=== PATIENT | male | born 1935 | race Caucasian/White ===

== ENCOUNTER 2022-05-04 15:37 | Inpatient (IN) | payer OTHER, MEDICARE ==
[~2022-05-04] VITALS: Ht 188 cm; Wt 73.9 kg
[2022-05-04 15:43] VITALS: BP_SYST 100
[2022-05-04 16:49] LABS: BASOPHILS # (AUTO) 0.1 K/uL (0.0-0.2); BASOPHILS % (AUTO) 0.3 % (0.0-2.0); EOSINOPHILS % (AUTO) 0.2 % (0.0-4.0); HEMATOCRIT 41.8 % (36-54); HEMOGLOBIN 14.1 g/dL (14.0-18.0); LYMPHOCYTES # (AUTO) 0.6 K/uL (1.0-5.5); LYMPHOCYTES % (AUTO) 3.3 % (20.5-51.5); MEAN CORPUSCULAR HEMOGLOBIN 36 pg (27-31); MEAN CORPUSCULAR HGB CONC 34 % (32-36); MEAN CORPUSCULAR VOLUME 106 fL (79.0-98.0); MONOCYTES # (AUTO) 0.5 K/uL (0.0-1.0); MONOCYTES % (AUTO) 2.5 % (1.7-9.3); NEUTROPHILS # (AUTO) 17.1 K/uL (1.8-7.7); NEUTROPHILS % (AUTO) 93.7 % (40.0-70.0); PLATELET COUNT (AUTO) 151 K/uL (130-430); RED BLOOD CELL COUNT(AUTO) 3.96 MIL/uL (4.2-6.2); RED CELL DISTRIBUTION WIDTH 15.5 % (9.0-15.0); WHITE BLOOD COUNT (AUTO) 18.3 K/uL (4.8-10.8)
[2022-05-04 17:05] LABS: ANION GAP 12 (5-15); CALCIUM 8.7 mg/dL (8.4-11.0); CHLORIDE 106 mmol/L (98-107); CREATININE 1.07 mg/dL (0.55-1.30); GLUCOSE 107 mg/dL (70-99); SODIUM SERUM 150 mmol/L (136-145); UREA NITROGEN, BLOOD 31 mg/dL (8-21)
[2022-05-04 17:12] LABS: ALANINE AMINOTRANSFERASE 15 U/L (12-78); ALBUMIN 2.4 g/dL (3.4-4.8); ASPARTATE AMINOTRANSFERASE 24 U/L (10-37)
--- NOTE | 2022-05-04 17:12 | NUR ---
COVID SWAB DONE AND SENT TO LAB
[2022-05-04 17:17] LABS: POTASSIUM 2.8 mmol/L (3.5-5.1)
[2022-05-04] MEDS ORDERED: ALBUTEROL SULFATE 0.083% 2.5 MG/3 ML VIAL.NEB INH ONE (17:45)
[2022-05-04] MEDS ORDERED: IPRATROPIUM BROM 0.5 MG/2.5 ML VIAL.NEB (ATROVENT) INH ONE (17:45)
[2022-05-04] MEDS ORDERED: POTASSIUM CHLORIDE 20 MEQ in D5/0.45 NS 1,000 ML IV SCH (18:45)
--- NOTE | 2022-05-04 18:57 | NUR ---
Patient resting quietly. VSS.
[2022-05-04] MEDS ORDERED: VANCOMYCIN HCL 1,000 MG in NS 250 ML IV ONE (19:00)
--- NOTE | 2022-05-04 19:15 | NUR ---
REPORT FROM TERRY SANTA
--- NOTE | 2022-05-04 19:19 | NUR ---
Report to Selene STEWART.
--- NOTE | 2022-05-04 19:57 | NUR ---
Admit bed requested Patient will be admitted to care of . Admitted to TELEMETRY unit. Diagnosis BILATERAL PNEUMONIA Inpatient (Yes or No) YES Observation (Yes or No) Orientation concerns or request close to nursing station (Yes or No) YES Covid NEG On vent or bipap NO Isolation requirements NO Needs a sitter From Home (Yes or if No enter name of facility) JUJU RASHI Requires Dialysis (Yes or No) NO Med Rec Completed (Yes of No) PENDING
[2022-05-04 20:35] VITALS: BP_SYST 126
[2022-05-04] MEDS ORDERED: ACETAMINOPHEN 650 MG SUPP.RECT RC PRN (21:30)
[2022-05-04] MEDS: methylPREDNISolone SOD SUCC/PF 62.5 MG/ML VIAL IVP SCH ×2 (21:30→23:10)
[2022-05-04] MEDS ORDERED: VANCOMYCIN HCL 1000 MG/VIAL IV ONE (21:32)
[2022-05-04] MEDS ORDERED: KCL 20 mEq in D5/0.45NS 1000mL 1,000 ML IV ONE (21:33)
[2022-05-04] MEDS ORDERED: MIDODRINE HCL 5 MG TABLET (PROAMATINE) PO SCH (21:36)
[2022-05-04] MEDS ORDERED: DONE5TAB33 PO (22:05)
[2022-05-04] MEDS ORDERED: LEVO75CA5 PO (22:05)
[2022-05-04] MEDS ORDERED: FURO-149 PO (22:05)
[2022-05-04] MEDS ORDERED: APIX2.5T PO (22:05)
[2022-05-04] MEDS ORDERED: TAFA61CA PO (22:05)
[2022-05-04] MEDS ORDERED: POTA-80 PO (22:05)
[2022-05-04] MEDS ORDERED: AMIO200T66 PO (22:05)
[2022-05-04] MEDS ORDERED: POLY119P15 PO (22:05)
[2022-05-04] MEDS ORDERED: MIDO5TAB4 PO (22:05)
--- NOTE | 2022-05-04 22:05 | NUR ---
Medication reconciliation completed with information provided by JUJU MARKHAM. Any prior medication reconciliation on file was reviewed and corrected.
[2022-05-04 22:11] LABS: INR 1.4 (0.80-1.20); PROTHROMBIN TIME 14.1 SECS (9.5-12.5)
--- NOTE | 2022-05-04 22:30 | NUR ---
Admission Note Received patient from ER with diagnosis of BILATERAL PNEUMONIA. Patient confused.
--- NOTE | 2022-05-04 22:30 | NUR ---
PT STABLE FOR ADMISSION TO ROOM #121C. TO ROOM VIA BERNARDA SOLER MONITOR WITH RN. REPORT TO TERRY DAVIS.VSS
[2022-05-04] MEDS ORDERED: PIPERACILLIN/TAZOBACTAM 3.375 GM/VIAL (ZOSYN) IV ONE (23:33)
[2022-05-05] MEDS: PIPERACILLIN/TAZO 3.375/DEX-IS 50 ML IV SCH ×2 (01:11→06:09)
[2022-05-05] MEDS: LEVOTHYROXINE SODIUM 0.075 MG TABLET PO SCH (06:09)
[2022-05-05] MEDS: methylPREDNISolone SOD SUCC/PF 62.5 MG/ML VIAL IVP SCH ×2 (06:09→12:35)
--- NOTE | 2022-05-05 07:40 | NUR ---
CLOSING NOTES Patient resting in bed - no s/s pain or distress noted. Respirations even and unlabored. IV site patent - no s/s redness, infection, or infiltration. Bed locked and in lowest position. Bed alarm on. Patient cleaned and linens changed three times throughout shift due to multiple bowel movements.
[2022-05-05 08:00] VITALS: BP_SYST 114
--- NOTE | 2022-05-05 08:00 | NUR ---
Patient is AOx2, patient states name and location. Patient is confused. Patient was on Nasal cannula on 4Lo2, SPO2 at 83- 88%. Increased O2 to 5L O2. SPo2 at 90-91%. Patient's breathing is even and nonlabored. Vital signs obtained as documented. Patient denies pain, no facial grimace noted. Cleaned and repositioned patient. Linen changed, patient incontinent and had bowel movement. HOB elevated. Safety precautions in place. Bed alarm on, at lowest position, and call light within reach.
--- NOTE | 2022-05-05 08:25 | NUR ---
CONSULT: CARDIO DR. CALVO IS HERE, WILL SEE THE PATIENT. DX: CHF
[2022-05-05] MEDS ORDERED: DONEPEZIL HCL 5 MG TABLET (ARICEPT) PO SCH (09:00)
[2022-05-05] MEDS ORDERED: NON-FORMULARY MEDICATION (Levothyroxine Sodium (Levothyroxine) 1 TAB) PO SCH (09:00)
--- NOTE | 2022-05-05 09:01 | NUR ---
ST EVALUATION COMPLETED. ST TX NOT INDICATED AT THIS TIME. RECOMMEND PO DIET OF PUREE/NECTAR THICK LIQUIDS. CONTINUE TO CUT/CRUSH MEDICATION NEEDED. 1:1 FEEDER AND FULL ASPIRATION PRECAUTIONS.
[2022-05-05 09:07] LABS: BASOPHILS % (AUTO) 0.1 % (0.0-2.0); HEMATOCRIT 42.8 % (36-54); HEMOGLOBIN 14.7 g/dL (14.0-18.0); LYMPHOCYTES # (AUTO) 0.4 K/uL (1.0-5.5); LYMPHOCYTES % (AUTO) 2.4 % (20.5-51.5); MEAN CORPUSCULAR HEMOGLOBIN 36 pg (27-31); MEAN CORPUSCULAR HGB CONC 34 % (32-36); MEAN CORPUSCULAR VOLUME 105 fL (79.0-98.0); MONOCYTES # (AUTO) 0.3 K/uL (0.0-1.0); MONOCYTES % (AUTO) 1.4 % (1.7-9.3); NEUTROPHILS # (AUTO) 17.8 K/uL (1.8-7.7); NEUTROPHILS % (AUTO) 96.1 % (40.0-70.0); PLATELET COUNT (AUTO) 155 K/uL (130-430); RED BLOOD CELL COUNT(AUTO) 4.09 MIL/uL (4.2-6.2); RED CELL DISTRIBUTION WIDTH 15.2 % (9.0-15.0); WHITE BLOOD COUNT (AUTO) 18.5 K/uL (4.8-10.8)
[2022-05-05] MEDS: FUROSEMIDE 40 MG TABLET PO SCH (09:25)
[2022-05-05] MEDS: APIXABAN 2.5 MG TABLET PO SCH ×2 (09:26→20:02)
[2022-05-05] MEDS: AMIODARONE HCL 200 MG TABLET PO SCH (09:27)
[2022-05-05] MEDS: POTASSIUM CHLORIDE 20 MEQ/PKT PACKET PO SCH (09:27)
[2022-05-05] MEDS: MIDODRINE HCL 5 MG TABLET (PROAMATINE) PO SCH ×3 (09:28→20:01)
[2022-05-05 09:33] LABS: ANION GAP 15 (5-15); CALCIUM 8.6 mg/dL (8.4-11.0); CHLORIDE 107 mmol/L (98-107); CREATININE 1.33 mg/dL (0.55-1.30); GLUCOSE 140 mg/dL (70-99); POTASSIUM 3.1 mmol/L (3.5-5.1); SODIUM SERUM 152 mmol/L (136-145); UREA NITROGEN, BLOOD 39 mg/dL (8-21)
--- NOTE | 2022-05-05 10:00 | NUR ---
critical Spoke to Dr. Marcano. aware of critical troponin level. NO orders received.
[2022-05-05] MEDS: POTASSIUM CHLORIDE 20 MEQ in D5/0.45 NS 1,000 ML IV SCH ×2 (10:41→23:57)
--- NOTE | 2022-05-05 11:30 | NUR ---
Notes Patient's SPo2 went down to 80's with nasal cannula and breathing treatment. Dr. Cordero came and saw patient earlier today, new orders received. Patient on Oxymizer @ 10 L O2. SPO2 is at 90-94%. Breathing is even and non labored at this time. ABG- pO2 low 64.5, Dr. Cordero made aware. Monitoring pulse ox continuously. Patient is confused and removes pulse ox constantly. HOB elevated and safety precautions in place. Call light within reach.
[2022-05-05 12:00] VITALS: BP_SYST 110
[2022-05-05] MEDS ORDERED: PIPERACILLIN/TAZOBACTAM 3.375 GM/ D5W 50 ML IV ONE ×2 (13:00)
--- NOTE | 2022-05-05 13:00 | NUR ---
Notes Dr. Tai came and saw patient. aware of patient's fluctuating SPo2 throughout the day. MD state to continue to monitor SPO2 with pulse. Patient SPo2 at 10 L O2 via Lo2 Addendum: 05/05/22 at 2219 by Dorothy Blancas LVN Notes Dr. Tai came and saw patient. aware of patient's fluctuating SPo2 throughout the day. MD state to continue to monitor SPO2 with pulse. Patient SPo2 at 93-94% 10 L O2 via Oxymizer. NO s/s of distress noted. HOB elevated. Safety precautions in place and call light within reach.
[2022-05-05] MEDS: LevALBUTEROL HCL 1.25 MG/0.5 ML *CONC.* VIAL.NEB (XOPENEX CONC.) INH PRN (13:06)
[2022-05-05] MEDS ORDERED: POTASSIUM CHLORIDE 40 MEQ in NS 250 ML IV ONE (13:45)
--- NOTE | 2022-05-05 14:30 | NUR ---
Notes Patient has been cleaned and repositioned. Linens changed. Patient is still on Oxymizer, increased to 12 L O2. SPO2 93- 96%. Continuos pulse ox in place. No s/s of distress noted. Breathing is even and nonlabored at this time. NO s/s of acute distress noted. Patient has a JOLYNN PICC line. HOB elevated. Safety Precautions in place and call light within reach.
[2022-05-05 16:00] VITALS: BP_SYST 114
--- NOTE | 2022-05-05 17:00 | NUR ---
Notes Patient's SPO2 dropped to low 80's with Oxymizer at 12 L O2. RT was called and was put on a nonrebreather mask, at 15 L O2. SPO2 range 96- 98%. NO acute s/s of distress noted at this time. NO SOB at this time. Breathing is even and nonlabored at this time. Dr. Tai made aware of patient fluctuating SPO2 when he came to see the patient earlier. Patient is DNR, POLST is in chart and signed by MD. Patient denies pain, no facial grimace noted. HOB elevated. Safety Precautions in place and call light within reach.
[2022-05-05] MEDS ORDERED: COMMUNICATION ORDER XX ONE (18:15)
[2022-05-05] MEDS: PIPERACILLIN/TAZOBACTAM 3.375 GM/ D5W 50 ML IV SCH ×4 (19:14→23:42)
--- NOTE | 2022-05-05 19:30 | NUR ---
Closing Notes Patient is on nonrebreather on 15 L O2. SPo2 at 94-96%. No acute s/s of respiratory distress at this time. Breathing is even and nonlabored. NO SOB noted. No facial grimace noted. Patient has been given a bed bath, changed all the linen and his gown, due to bowel movement. Patient has had multiple bowel movements through out the shift. HOB is elevated. Continuing of care has been endorsed to incoming noc nurse. Safety precautions in place, bed alarm on, at lowest position, and call light within reach.
[2022-05-05 20:00] VITALS: BP_SYST 112
[2022-05-05] MEDS: LINEZOLID 300 ML IV SCH (20:00)
[2022-05-05] MEDS: VYNDAMAX 61 MG PO SCH (20:01)
[2022-05-05] MEDS: DONEPEZIL HCL 5 MG TABLET (ARICEPT) PO SCH (20:02)
[2022-05-05 20:35] LABS: DIGOXIN 0.5 ng/mL (0.80-2.00)
[2022-05-05] MEDS ORDERED: ENOXAPARIN SODIUM 40 MG/0.4 ML SYRINGE SUBCUT SCH (21:00)
[2022-05-05] MEDS ORDERED: VANCOMYCIN HCL 1,500 MG in NS 250 ML IV SCH (21:00)
--- NOTE | 2022-05-05 21:22 | NUR ---
Patient in bed. Turned repositioned q2. No acute distress noted. Will continue to monitor.
[2022-05-06] VITALS: BP_SYST 95
[2022-05-06] MEDS: LEVOTHYROXINE SODIUM 0.075 MG TABLET PO SCH (04:55)
[2022-05-06] MEDS: PIPERACILLIN/TAZOBACTAM 3.375 GM/ D5W 50 ML IV SCH ×6 (04:55→18:07)
--- NOTE | 2022-05-06 05:16 | NUR ---
Patient continues to pull at his lines, and heart monitor. Will endorse to a.m. shift
[2022-05-06 06:46] LABS: BASOPHILS % (AUTO) 0.1 % (0.0-2.0); HEMATOCRIT 42.8 % (36-54); HEMOGLOBIN 14.5 g/dL (14.0-18.0); LYMPHOCYTES # (AUTO) 0.7 K/uL (1.0-5.5); LYMPHOCYTES % (AUTO) 3.3 % (20.5-51.5); MEAN CORPUSCULAR HEMOGLOBIN 36 pg (27-31); MEAN CORPUSCULAR HGB CONC 34 % (32-36); MEAN CORPUSCULAR VOLUME 105 fL (79.0-98.0); MONOCYTES # (AUTO) 0.6 K/uL (0.0-1.0); MONOCYTES % (AUTO) 2.8 % (1.7-9.3); NEUTROPHILS # (AUTO) 19.7 K/uL (1.8-7.7); NEUTROPHILS % (AUTO) 93.8 % (40.0-70.0); PLATELET COUNT (AUTO) 154 K/uL (130-430); RED BLOOD CELL COUNT(AUTO) 4.06 MIL/uL (4.2-6.2); RED CELL DISTRIBUTION WIDTH 16.1 % (9.0-15.0)
[2022-05-06 08:00] VITALS: BP_SYST 78
--- NOTE | 2022-05-06 08:00 | NUR ---
OPENING NOTE Patient in bed resting, no sign of distress or pain. Oxygen saturation 98% on a nonrebreather 15L. Patient is not currently pulling at lines or mask. PICC is intact and running prescribed fluids. Patient had an excellent appetite and ate 90% of his breakfast. All needs met at this time and safety checks made.
[2022-05-06] MEDS: MIDODRINE HCL 5 MG TABLET (PROAMATINE) PO SCH ×2 (08:30→15:25)
[2022-05-06] MEDS: POTASSIUM CHLORIDE 20 MEQ/PKT PACKET PO SCH (08:31)
[2022-05-06] MEDS: FUROSEMIDE 40 MG TABLET PO SCH (08:31)
[2022-05-06] MEDS: AMIODARONE HCL 200 MG TABLET PO SCH (08:32)
[2022-05-06] MEDS: APIXABAN 2.5 MG TABLET PO SCH (08:33)
[2022-05-06 08:44] LABS: ALANINE AMINOTRANSFERASE 11 U/L (12-78); ANION GAP 2 (5-15); ASPARTATE AMINOTRANSFERASE 23 U/L (10-37); CALCIUM 8.5 mg/dL (8.4-11.0); CHLORIDE 115 mmol/L (98-107); CREATININE 1.61 mg/dL (0.55-1.30); GLUCOSE 147 mg/dL (70-99); POTASSIUM 3.7 mmol/L (3.5-5.1); SODIUM SERUM 148 mmol/L (136-145); THYROID STIMULATING HORMONE 6.06 uIu/mL (0.36-3.74); TOTAL BILIRUBIN 1.2 mg/dL (0.0-1.0); UREA NITROGEN, BLOOD 56 mg/dL (8-21)
[2022-05-06] MEDS ORDERED: NS 500 ML IV ONE (10:00)
[2022-05-06] MEDS: LINEZOLID 300 ML IV SCH ×2 (10:06→20:43)
--- NOTE | 2022-05-06 10:26 | NUR ---
PATIENT PLACED ON BIPAP AND RESTRAINTS Patient pulling off non rebreather mask and oxygen dropping to the 70's. Patient's blood pressure decreased. Spoke with Dr Cordero and received new orders. Patient placed on bipap and is now on soft bilateral restraints. Patient continues to pull at the restraints and attempts to pull at his heart monitor leads and bipap tubing. Patient is also receiving an NS bolus. All needs met at this time and safety checks made.
[2022-05-06 11:11] VITALS: BP_SYST 104
[2022-05-06] MEDS: POTASSIUM CHLORIDE 20 MEQ in D5/0.45 NS 1,000 ML IV SCH (11:24)
--- NOTE | 2022-05-06 15:51 | NUR ---
Dietitian Recommendations * Continue Pureed, NTL diet (ONS Ensure Enlive TID comes standard w/ current diet; ONS yields 1050 kcal/day, 60 gm protein/day) * Yogurt TID w/ meals per family request LP, MS, RD Please refer to Nutrition Assessment for details. Addendum: 05/06/22 at [address] Amended: Links added.
[2022-05-06 16:00] VITALS: BP_SYST 81
[2022-05-06] MEDS ORDERED: *TPN PER PHARMACY XX PRN (18:00)
[2022-05-06] MEDS ORDERED: ALBUMIN HUMAN 25% 100 ML IV ONE (18:30)
--- NOTE | 2022-05-06 19:13 | NUR ---
CLOSING NOTE Patient resting in bed with eyes closed, no sign of pain. Patient continues to pull at his lines even with the bilateral wrist restraints. Bipap in place, oxygenation 93% on 100% oxygen. PICC line is patent and running prescribed fluids. Patient has been turned q2h throughout shift. Patient continues to have watery stools, c-diff test pending. Endorsed to oceanographer assistant nurse that per Dr Cordero, if the patient remains hypotensive after receiving albumin, patient may need to be transferred to ICU. All needs met at this time and safety checks made. Endorsed to oceanographer assistant nurse.
[2022-05-06 20:00] VITALS: BP_SYST 96
[2022-05-06] MEDS: METHYLPREDNISOLONE SOD SUCC 40 MG/ML VIAL IVP SCH (20:43)
[2022-05-06] MEDS: VYNDAMAX 61 MG PO SCH (21:00)
--- NOTE | 2022-05-06 23:21 | NUR ---
Patient in bed. No acute distress noted. Turned repositioned q 2. Pericare given. Bipap intact. Will continue to monitor.
[2022-05-07] MEDS: APIXABAN 2.5 MG TABLET PO SCH ×3 (00:35→22:36)
[2022-05-07] MEDS: MIDODRINE HCL 5 MG TABLET (PROAMATINE) PO SCH ×4 (00:35→21:12)
[2022-05-07] MEDS: DONEPEZIL HCL 5 MG TABLET (ARICEPT) PO SCH ×2 (00:35→21:17)
[2022-05-07] MEDS: PIPERACILLIN/TAZOBACTAM 3.375 GM/ D5W 50 ML IV SCH ×8 (00:36→18:09)
[2022-05-07 00:59] VITALS: BP_SYST 125
[2022-05-07] MEDS: POTASSIUM CHLORIDE 20 MEQ in D5/0.45 NS 1,000 ML IV SCH ×3 (02:24→21:20)
[2022-05-07 08:08] VITALS: BP_SYST 74
[2022-05-07] MEDS ORDERED: NS 250 ML IV ONE ×3 (08:15→10:15)
[2022-05-07 08:35] LABS: ALBUMIN 2.1 g/dL (3.4-4.8); CHLORIDE 112 mmol/L (98-107); POTASSIUM 4.1 mmol/L (3.5-5.1); UREA NITROGEN, BLOOD 62 mg/dL (8-21)
[2022-05-07] MEDS: METHYLPREDNISOLONE SOD SUCC 40 MG/ML VIAL IVP SCH ×2 (08:41→21:04)
[2022-05-07 09:45] LABS: ALANINE AMINOTRANSFERASE 11 U/L (12-78); ANION GAP 8 (5-15); ASPARTATE AMINOTRANSFERASE 23 U/L (10-37); CALCIUM 8.3 mg/dL (8.4-11.0); CREATININE 1.92 mg/dL (0.55-1.30); GLUCOSE 130 mg/dL (70-99); SODIUM SERUM 149 mmol/L (136-145); TOTAL BILIRUBIN 0.9 mg/dL (0.0-1.0)
[2022-05-07] MEDS: LEVOTHYROXINE SODIUM 0.075 MG TABLET PO SCH (09:53)
[2022-05-07] MEDS: POTASSIUM CHLORIDE 20 MEQ/PKT PACKET PO SCH (09:53)
[2022-05-07] MEDS: AMIODARONE HCL 200 MG TABLET PO SCH (09:53)
[2022-05-07 09:58] LABS: TRIGLYCERIDES 75 mg/dL (30-150)
--- NOTE | 2022-05-07 10:10 | NUR ---
RT NOTE: 1010 Pt taken off BiPAP and placed on 8LPM simple mask. Tolerating well. SpO2 between 94-98%. Respiratory rate even and unlabored.
--- NOTE | 2022-05-07 10:16 | NUR ---
TAKEN OFF BIPAP, PLACED ON SIMPLE MASK Patient placed on simple mask 8L, oxygen saturation 97%. Patient is tolerating well, breathing is nonlabored and even.
[2022-05-07] MEDS: LINEZOLID 300 ML IV SCH ×2 (10:21→21:18)
[2022-05-07 10:30] LABS: BASOPHILS % (AUTO) 0.1 % (0.0-2.0); HEMATOCRIT 41.9 % (36-54); HEMOGLOBIN 14.2 g/dL (14.0-18.0); LYMPHOCYTES # (AUTO) 0.7 K/uL (1.0-5.5); LYMPHOCYTES % (AUTO) 4.3 % (20.5-51.5); MEAN CORPUSCULAR HEMOGLOBIN 36 pg (27-31); MEAN CORPUSCULAR HGB CONC 34 % (32-36); MEAN CORPUSCULAR VOLUME 107 fL (79.0-98.0); MONOCYTES # (AUTO) 0.5 K/uL (0.0-1.0); MONOCYTES % (AUTO) 2.9 % (1.7-9.3); NEUTROPHILS # (AUTO) 14.6 K/uL (1.8-7.7); NEUTROPHILS % (AUTO) 92.7 % (40.0-70.0); PLATELET COUNT (AUTO) 112 K/uL (130-430); RED BLOOD CELL COUNT(AUTO) 3.92 MIL/uL (4.2-6.2); RED CELL DISTRIBUTION WIDTH 15.9 % (9.0-15.0); WHITE BLOOD COUNT (AUTO) 15.8 K/uL (4.8-10.8)
[2022-05-07 10:46] LABS: PHOSPHORUS 4.2 mg/dL (2.7-4.5)
[2022-05-07 12:05] VITALS: BP_SYST 121
--- NOTE | 2022-05-07 14:55 | NUR ---
Wound Evaluation: Wound Consult ordered for Low Nicholas Score. Patient evaluated for a low Nicholas score of 15. Patient was awake, alert, confused, and received in a Olmitz Bed with an Atmos-Air 9000 mattress. Patient needs to be turned in bed. Skin assessment: 1. Buttocks: Blanchable redness with dark discolored skin from IAD, present on admission. Recommend: Cleanse involved areas with mild soap and water. Pat dry. Apply moisture barrier cream to involved areas. Perform site care 4 times daily and as needed for soiling. Recommend: Reposition patient side to side only every 2 hours with pillow support. Elevate, off-load and float bilateral heels with 1 pillow lengthwise under each extremity at all times. Offload pressure areas with pillows for pressure re-distribution. Perform skin care and monitor skin integrity Q shift. Use moisture barrier cream on moisture susceptible areas QID and PRN for soiling. Place patient on a low air-loss mattress.
[2022-05-07 16:43] VITALS: BP_SYST 122
--- NOTE | 2022-05-07 18:57 | NUR ---
CLOSING NOTE Patient in bed resting, agitated and pulling at his restraints. Patient is confused and has consistently tried to remove his oxygen mask when his restraints are removed. Comfort measures provided throughout the shift. Patient is on a simple mask, 8L, with oxygen 93%. Breathing is regular and nonlabored. Patient continues to have loose stools. PICC line is clean, dry, intact and running prescribed fluids. All needs met at this time and safety checks made. Will endorse to bridal sales consultant nurse.
[2022-05-07] MEDS ORDERED: [UNRECOGNIZED DRUG - OTHER] IV SCH ×6 (21:00)
[2022-05-07] MEDS ORDERED: POTASSIUM CHLORIDE IV SCH ×6 (21:00)
[2022-05-07] MEDS ORDERED: TPN CENTRAL IV SCH ×6 (21:00)
[2022-05-07] MEDS ORDERED: MVI IV SCH ×6 (21:00)
[2022-05-07] MEDS ORDERED: TRACE ELEMENTS IV SCH ×6 (21:00)
[2022-05-07] MEDS: VYNDAMAX 61 MG PO SCH (21:09)
[2022-05-07] MEDS: FAT EMULSIONS 250 ML IV SCH (21:29)
[2022-05-08] MEDS: PIPERACILLIN/TAZOBACTAM 3.375 GM/ D5W 50 ML IV SCH ×8 (00:14→18:15)
[2022-05-08 01:07] VITALS: BP_SYST 114
[2022-05-08] MEDS: LEVOTHYROXINE SODIUM 0.075 MG TABLET PO SCH (06:35)
[2022-05-08 06:39] LABS: EOSINOPHILS % (AUTO) 0.1 % (0.0-4.0); HEMOGLOBIN 14.8 g/dL (14.0-18.0); LYMPHOCYTES # (AUTO) 0.7 K/uL (1.0-5.5); LYMPHOCYTES % (AUTO) 4.3 % (20.5-51.5); MEAN CORPUSCULAR HEMOGLOBIN 36 pg (27-31); MEAN CORPUSCULAR HGB CONC 34 % (32-36); MEAN CORPUSCULAR VOLUME 106 fL (79.0-98.0); MONOCYTES # (AUTO) 0.4 K/uL (0.0-1.0); MONOCYTES % (AUTO) 2.3 % (1.7-9.3); NEUTROPHILS # (AUTO) 16.1 K/uL (1.8-7.7); PLATELET COUNT (AUTO) 91 K/uL (130-430); RED BLOOD CELL COUNT(AUTO) 4.17 MIL/uL (4.2-6.2); RED CELL DISTRIBUTION WIDTH 16.4 % (9.0-15.0); WHITE BLOOD COUNT (AUTO) 17.3 K/uL (4.8-10.8)
--- NOTE | 2022-05-08 07:13 | NUR ---
received report from endorsing hourly shift RN for continuation of care, patient vital signs blood pressure 96/62, heart rate 66, oxygen saturation 92 , and temperature 95.6, will continue to monitor.
[2022-05-08 08:44] LABS: ALANINE AMINOTRANSFERASE 15 U/L (12-78); ANION GAP 10 (5-15); ASPARTATE AMINOTRANSFERASE 24 U/L (10-37); CALCIUM 8.3 mg/dL (8.4-11.0); CHLORIDE 111 mmol/L (98-107); CREATININE 1.69 mg/dL (0.55-1.30); GLUCOSE 146 mg/dL (70-99); PHOSPHORUS 2.7 mg/dL (2.7-4.5); POTASSIUM 4.3 mmol/L (3.5-5.1); SODIUM SERUM 148 mmol/L (136-145); TOTAL BILIRUBIN 0.9 mg/dL (0.0-1.0); UREA NITROGEN, BLOOD 62 mg/dL (8-21)
[2022-05-08] MEDS: METHYLPREDNISOLONE SOD SUCC 40 MG/ML VIAL IVP SCH ×2 (08:47→21:48)
[2022-05-08] MEDS: MIDODRINE HCL 5 MG TABLET (PROAMATINE) PO SCH ×3 (08:50→21:49)
[2022-05-08] MEDS: AMIODARONE HCL 200 MG TABLET PO SCH (08:51)
[2022-05-08] MEDS: APIXABAN 2.5 MG TABLET PO SCH ×2 (08:53→21:48)
[2022-05-08] MEDS: POTASSIUM CHLORIDE 20 MEQ/PKT PACKET PO SCH (08:54)
[2022-05-08] MEDS: LevALBUTEROL HCL 1.25 MG/0.5 ML *CONC.* VIAL.NEB (XOPENEX CONC.) INH PRN (09:05)
[2022-05-08] MEDS: LINEZOLID 300 ML IV SCH (09:17)
[2022-05-08 12:04] VITALS: BP_SYST 106
[2022-05-08 15:21] LABS: NEUTROPHILS % (AUTO) 93.3 % (40.0-70.0)
[2022-05-08 16:06] VITALS: BP_SYST 112
--- NOTE | 2022-05-08 16:58 | NUR ---
Nutrition F/U Admitting Diagnosis Bilat pneumonia Reviewed Pertinent Medical/Surgical Hx Medical Record Patient PharmD Medical History Comment: PMH: CHF, dementia, HTN, and COPD per physician notes Pt also found w/ hypoxemia, hypothyroidism, hypernatremia, moderate malnutrition, and CKD per physician notes Subjective Information: TPN Notification received 05/06/[address] visited pt at bedside. No family present. TPN seen infusing as per physician/pharmD order. Per EMR review, pt was placed NPO d/t requiring more O2 via BiPAP and he became poorly responsive; pt is confused; tested positive for C. diff; on simple mask 8 L O2; DNR/DNI noted. Pt is not yet meeting optimal nutritional needs. RD spoke w/ pharmD in [facility] and relayed new RD TPN rec; pharmD acknowledged. Current Diet Order/Nutrition Support: NPO x1 day & TPN D30%, AA10% at 45 ml/hr, IL20% at 5 ml/hr via central line TPN Provides: 974 kcal/day, 54 gm protein/day, 1200 ml total volume/day, and GIR: 1.5 mg CHO/kg/min TPN Meets: 44% of lower end of estimated caloric needs and 73% of lower end of estimated protein needs Education Provided Not Indicated Pertinent Medications: solu-medrol, piperacillin/tazobactam, eliquis, KCl packet, synthroid Pertinent Labs: WBC 17.3 H, Na 148 H, BUN 62 H, CRE 1.69 H, BG 146 H, TG 75 WNL, Lactic acid 3 H, BNP 175 H (05/06) Height (Feet) 6 feet Height (Inches) 2.00 inches Weight (Pounds) 163 pounds -- stable since 05/06 Weight (Calculated Kilograms) 73.152154 kilograms Patient Weight 73.936 kg Body Mass Index 20.93 kg/m2 Usual Weight 190 lbs %UBW 86 %IBW 86 [place]/Adjusted Body Weight 190#/86.4 kg Recent Weight Change Yes - Suspected 27# wt loss/14% wt change within 6 mo Weight Status Appropriate Gastrointestinal Symptoms Diarrhea Last BM 05/08 Difficulty With: Chewing Swallowing Food Allergies No Usual Diet At Home Regular/thin/DEBBIE per nursing nutritional screening Skin Integrity Comment: Nicholas scale: 14, L arm w/ abrasion and R arm w/ ecchymosis; BLE w/ non-pitting edema per nursing notes Current % PO N/A Estimated Energy Expenditure (kcals/day) 5496-6720 (30-35 kcal/kg CBW d/t acute illness) Estimated Protein Required (g/day) 74-89 (0.8-1.2 gm/kg CBW d/t acute illness) Estimated Fluid Required (l/day) Per physician d/t CKD Problem/Etiology/Signs/Symptoms Complicated GI function R/T suspected med-induced diarrhea AEB daughter report of loose BM since starting Abx. *Ongoing, pt +C. diff Inadequate TPN support R/T increased nutritional demands AEB estimated nutritional requirements for acute illness and current TPN support meets <75% of estimated nutritional needs. *New Expected Outcomes/Goals - Monitor provision of TPN support w/ goal of pt meeting >80% of estimated nutritional needs, labs trending WNL, normal GI function, and skin integrity/wt maintenance Dietitian Recommendations * TPN D50%, AA10% at 75 ml/hr (goal rate), IL20% at 5 ml/hr daily via central line Provides: 2076 kcal/day, 90 gm protein/day, 1920 ml free water/day, and GIR: 4.2 mg CHO/kg/min Meets: 94% of lower end of estimated caloric needs and 101% of upper end of estimated protein needs * Consider BG monitoring and possible implementation of insulin d/t TPN infusion Follow Up High Risk: F/U in 2-3 days
[2022-05-08] MEDS: VANCOMYCIN HCL ORAL SOLUTION 125 MG/5 ML, 150 ML PO SCH ×2 (17:00→21:00)
--- NOTE | 2022-05-08 17:08 | NUR ---
Dietitian Recommendations * TPN D50%, AA10% at 75 ml/hr (goal rate), IL20% at 5 ml/hr daily via central line Provides: 2076 kcal/day, 90 gm protein/day, 1920 ml free water/day, and GIR: 4.2 mg CHO/kg/min Meets: 94% of lower end of estimated caloric needs and 101% of upper end of estimated protein needs * Consider BG monitoring and possible implementation of insulin d/t TPN infusion LP, MS, RD RD relayed TPN rec to pharmD. Please refer to Nutrition F/U for details.
--- NOTE | 2022-05-08 18:36 | NUR ---
checked patient blood sugar 134, no insulin coverage per sliding scale.
[2022-05-08 19:30] VITALS: BP_SYST 165
--- NOTE | 2022-05-08 19:30 | NUR ---
PM ASSESSMENT; -Pt is alerted x1, resting in bed. NO s/s any chest pain,sob,or any acute distress noted. GEORGINA PICC patent with 2 ports drsg cdi. TPN @ 45ml/hr, lipid 20% @ 5ml/hr, and D5 1/2 NS @30ml/hr. Olivier soft wrists restraint applied,good circulation, no s/s any injury noted. Keep HOB > 30 degree entire time. Maintain C-diff contact isolation. Pt is on simple mask with 8 L with y7yzf=81-03%. Unable to discuss poc d/t cognitive limitation and no family is at bedside this time. All safety measures in place. Cont to monitor pt.
[2022-05-08] MEDS ORDERED: TPN CENTRAL IV SCH ×7 (21:00)
[2022-05-08] MEDS ORDERED: POTASSIUM CHLORIDE IV SCH ×7 (21:00)
[2022-05-08] MEDS ORDERED: [UNRECOGNIZED DRUG - OTHER] IV SCH ×7 (21:00)
[2022-05-08] MEDS ORDERED: MVI IV SCH ×7 (21:00)
[2022-05-08] MEDS ORDERED: K PHOS IV SCH ×7 (21:00)
[2022-05-08] MEDS: FAT EMULSIONS 250 ML IV SCH (21:46)
--- NOTE | 2022-05-08 21:48 | NUR ---
ROUNDS; Incont of bowel movt -Pt is still awakes, resting in bed. NO s/s any chest pain,sob,or any acute distress noted. GEORGINA PICC patent with 2 ports drsg cdi. TPN @ 45ml/hr, lipid 20% @ 5ml/hr, and D5 1/2 NS @30ml/hr. Oliiver soft wrists restraint applied,good circulation, no s/s any injury noted. Keep HOB > 30 degree entire time. Maintain C-diff contact isolation. Pt is on simple mask with 8 L with r3vlx=79-17%. Pt is incontinent of large loose dark green stool,provided perineal care and now pt is cleaned and dry. All safety measures in place.cont to monitor pt.
[2022-05-08] MEDS: VYNDAMAX 61 MG PO SCH (21:49)
[2022-05-08] MEDS: DONEPEZIL HCL 5 MG TABLET (ARICEPT) PO SCH (21:51)
--- NOTE | 2022-05-09 | NUR ---
ROUNDS; -Pt is resting in bed comfortably. NO s/s any chest pain,sob,or any acute distress noted. GEORGINA PICC patent with 2 ports drsg cdi. TPN @ 45ml/hr, lipid 20% @ 5ml/hr, and D5 1/2 NS @30ml/hr. Olivier soft wrists restraint applied,good circulation, no s/s any injury noted. Keep HOB > 30 degree entire time. Maintain C-diff contact isolation. Pt is on simple mask with 8 L with k2ghd=15-39%. All safety measures in place.cont to monitor pt.
[2022-05-09] MEDS: PIPERACILLIN/TAZOBACTAM 3.375 GM/ D5W 50 ML IV SCH ×8 (01:32→18:11)
[2022-05-09] MEDS: POTASSIUM CHLORIDE 20 MEQ in D5/0.45 NS 1,000 ML IV SCH ×2 (01:33→21:39)
--- NOTE | 2022-05-09 02:00 | NUR ---
ROUNDS; -Pt is asleep in bed comfortably. NO s/s any chest pain,sob,or any acute distress noted. GEORGINA PICC patent with 2 ports drsg cdi. TPN @ 45ml/hr, lipid 20% @ 5ml/hr, and D5 1/2 NS @30ml/hr. Olivier soft wrists restraint applied,good circulation, no s/s any injury noted. Keep HOB > 30 degree entire time. Maintain C-diff contact isolation. Pt is on simple mask with 8 L with b1ans=39-12%. All safety measures in place.cont to monitor pt.
[2022-05-09 02:52] VITALS: BP_SYST 96
--- NOTE | 2022-05-09 04:00 | NUR ---
ROUNDS; -Pt is asleep in bed comfortably. Pt's condition stable. NO s/s any chest pain,sob,or any acute distress noted. GEORGINA PICC patent with 2 ports drsg cdi. TPN @ 45ml/hr, lipid 20% @ 5ml/hr, and D5 1/2 NS @30ml/hr. Olivier soft wrists restraint applied,good circulation, no s/s any injury noted. Keep HOB > 30 degree entire time. Maintain C-diff contact isolation. Pt is on simple mask with 8 L with k7spw=60-94%. All safety measures in place.cont to monitor pt.
[2022-05-09] MEDS: LEVOTHYROXINE SODIUM 0.075 MG TABLET PO SCH (06:18)
--- NOTE | 2022-05-09 06:27 | NUR ---
CLOSING NOTES; -Pt is resting in bed. NO s/s any chest pain,sob,or any acute distress noted. GEORGINA PICC patent with 2 ports drsg cdi. TPN @ 45ml/hr, lipid 20% @ 5ml/hr, and D5 1/2 NS @30ml/hr. Olivier soft wrists restraint applied,good circulation, no s/s any injury noted. Keep HOB > 30 degree entire time. Maintain C-diff contact isolation. Pt is on simple mask with 8 L with b6pdp=40-19%. All safety measures in place. Will endorse to next nurse to cont care.
--- NOTE | 2022-05-09 07:12 | NUR ---
RECEIVED REPORT FROM ENDORSING CLEAN ROOM OPERATOR RN FOR CONTINUITY OF CARE,CHECKED VITAL SIGNS BLOOD PRESSURE 122/63, HEART RATE 64, OXYGEN SATURATION 97, AND TEMPERATURE 96.8.
[2022-05-09 08:00] VITALS: BP_SYST 122
[2022-05-09] MEDS: VANCOMYCIN HCL ORAL SOLUTION 125 MG/5 ML, 150 ML PO SCH ×4 (09:00→21:00)
[2022-05-09] MEDS: MIDODRINE HCL 5 MG TABLET (PROAMATINE) PO SCH ×3 (09:20→21:00)
[2022-05-09] MEDS: AMIODARONE HCL 200 MG TABLET PO SCH (09:20)
[2022-05-09] MEDS: POTASSIUM CHLORIDE 20 MEQ/PKT PACKET PO SCH (09:22)
[2022-05-09] MEDS: APIXABAN 2.5 MG TABLET PO SCH ×2 (09:22→21:00)
[2022-05-09] MEDS: METHYLPREDNISOLONE SOD SUCC 40 MG/ML VIAL IVP SCH ×2 (09:35→21:57)
[2022-05-09 09:45] LABS: ALANINE AMINOTRANSFERASE 22 U/L (12-78); ANION GAP 7 (5-15); ASPARTATE AMINOTRANSFERASE 34 U/L (10-37); CALCIUM 8.5 mg/dL (8.4-11.0); CHLORIDE 110 mmol/L (98-107); CREATININE 2.05 mg/dL (0.55-1.30); GLUCOSE 156 mg/dL (70-99); PHOSPHORUS 2.6 mg/dL (2.7-4.5); POTASSIUM 4.7 mmol/L (3.5-5.1); SODIUM SERUM 144 mmol/L (136-145); TOTAL BILIRUBIN 1.2 mg/dL (0.0-1.0); UREA NITROGEN, BLOOD 73 mg/dL (8-21)
--- NOTE | 2022-05-09 11:00 | NUR ---
Dr. Roblero is at the bedside, talking to the patient daughter Deepika about the condition of the patient.
[2022-05-09 12:00] VITALS: BP_SYST 111
--- NOTE | 2022-05-09 12:30 | NUR ---
CM: discussed dcp and options with dtrs: Octavia. They requested snf per their family dr 's advice. They want the family md to continue care at snf. See STRATEGIC SOURCING SPECIALIST's notes for the snf of choice and referrals.
--- NOTE | 2022-05-09 12:40 | NUR ---
PATIENT SERVICES ASSISTANT ACSW Susan responded to a STAT request for Manager Electrical Support. ACSW Susan met with patient's daughters Octavia. ACSW completed introductions and provided business card. They shared educational director was recommending palliative care and also according to patient's daughters, they were concerned as they had not received an update from primary treating physician in 5 days. As requested, ACSW provided a brief explanation of both palliative and hospice services. Due to patient's daughters requesting information specifically related to discharge plan, ACSW provided a brief explanation of the roles of licensed master social worker and case liner and recommended they also speak with case liner. ACSW provided update to Orthodontic Laboratory Technician Victoria on patient's daughters concerns. ACSW will continue to be available as needed
[2022-05-09] MEDS: LevALBUTEROL HCL 1.25 MG/0.5 ML *CONC.* VIAL.NEB (XOPENEX CONC.) INH PRN ×2 (13:07→15:41)
[2022-05-09 16:00] VITALS: BP_SYST 103
[2022-05-09 19:26] VITALS: BP_SYST 99
[2022-05-09] MEDS ORDERED: [UNRECOGNIZED DRUG - OTHER] IV SCH ×6 (21:00)
[2022-05-09] MEDS ORDERED: MVI IV SCH ×6 (21:00)
[2022-05-09] MEDS: VYNDAMAX 61 MG PO SCH (21:00)
[2022-05-09] MEDS ORDERED: TPN CENTRAL IV SCH ×6 (21:00)
[2022-05-09] MEDS: DONEPEZIL HCL 5 MG TABLET (ARICEPT) PO SCH (21:00)
[2022-05-09] MEDS ORDERED: K PHOS IV SCH ×6 (21:00)
[2022-05-09] MEDS ORDERED: TRACE ELEMENTS IV SCH ×6 (21:00)
[2022-05-09] MEDS: FAT EMULSIONS 250 ML IV SCH (21:43)
--- NOTE | 2022-05-09 21:50 | NUR ---
RT NOTES GOT CALLED TO PT'S ROOM DUE TO DESATURATION @1830, PT WAS ON SIMPLE MASK 9L SPO2 100%. PT WAS BREATHING AROUND IN THE 30S AND BREATHS WERE VERY SHALLOW. PLACED ON BIPAP 10/5 BACK UP RATE OF 16, 45% FI02. PT GETTING VOLUMES, BS WERE HEARD OVER BOTH LUNG AYON. PT CLAMMED DOWN AFTER AWHILE AND IS NOW BREATHING IN MID 20S. SPO2 99%, HR 53.
[2022-05-09 23:14] VITALS: BP_SYST 95
[2022-05-10 04:17] VITALS: BP_SYST 89
--- NOTE | 2022-05-10 04:42 | NUR ---
CLOSING NOTE-PT AWAKE AND RESTLESS. ON BIPAP FIO2 45%. BILATERAL SOFT WRIST RESTRAIN NOT TO REMOVE BIPAP. LAST V/S- 89/51 MMHG, O2 SAT 98% , HR 71 SR WITH OCC A-FIB. HAVING LOOSE GREENISH DIARRHEA X 2. C-DIFF POSITIVE. DIET- NPO ALSO PT UNABLE TO TAKE MEDICATION BY MOUTH DUE TO ALTERED MENTATION. APPLIED PROTECTIVE CREAM ON PERINEAL AND BUTTOCK- REDNESS. TPN @ 44 ML/HR, LIPID 5 ML/HR AND D51/2NS+ 20 MEQ KCL AT 30 ML/HR VIA RT UPPER ARM DOUBLE LUMEN PICC LINE. DRESSING DRY AND INTACT. DISCHARGE PLAN TO SNF WHEN BED IS AVAILABLE. BS EVERY 6 HR- WNL.
[2022-05-10] MEDS: PIPERACILLIN/TAZOBACTAM 3.375 GM/ D5W 50 ML IV SCH ×8 (05:14→17:22)
[2022-05-10] MEDS: LEVOTHYROXINE SODIUM 0.075 MG TABLET PO SCH (06:58)
--- NOTE | 2022-05-10 07:28 | NUR ---
GIVEN REPORT TO RADHA STEWART.
--- NOTE | 2022-05-10 07:30 | NUR ---
OPENING NOTES: PATIENT RESTING IN BED. PATIENT IS DROWSY AND SHALLOW BREATHING NOTED. PT IS ON BIPAP 45% FIO2. DISCONTINUED RESTRAINT. IVF AND TPN INFUSING WELL. BED LOCKED , ALARM ON AND IN LOWEST POSITION. FALL AND SAFETY PRECAUTION REINFORCED. CALL LIGHT WITHIN REACH.
--- NOTE | 2022-05-10 07:35 | NUR ---
Restraint discontinued: Patient is drowsy. Restraints discontinued.
[2022-05-10 08:09] VITALS: BP_SYST 103
[2022-05-10] MEDS: METHYLPREDNISOLONE SOD SUCC 40 MG/ML VIAL IVP SCH ×2 (08:23→20:26)
[2022-05-10 08:35] LABS: ALANINE AMINOTRANSFERASE 35 U/L (12-78); ALBUMIN 1.8 g/dL (3.4-4.8); ANION GAP 9 (5-15); ASPARTATE AMINOTRANSFERASE 62 U/L (10-37); CALCIUM 8.1 mg/dL (8.4-11.0); CHLORIDE 110 mmol/L (98-107); CREATININE 2.06 mg/dL (0.55-1.30); GLUCOSE 162 mg/dL (70-99); PHOSPHORUS 3.8 mg/dL (2.7-4.5); POTASSIUM 4.6 mmol/L (3.5-5.1); SODIUM SERUM 144 mmol/L (136-145); UREA NITROGEN, BLOOD 86 mg/dL (8-21)
[2022-05-10 08:40] LABS: HEMATOCRIT 50.6 % (36-54); HEMOGLOBIN 16.7 g/dL (14.0-18.0); MEAN CORPUSCULAR HEMOGLOBIN 35 pg (27-31); MEAN CORPUSCULAR HGB CONC 33 % (32-36); MEAN CORPUSCULAR VOLUME 107 fL (79.0-98.0); RED BLOOD CELL COUNT(AUTO) 4.75 MIL/uL (4.2-6.2); RED CELL DISTRIBUTION WIDTH 16.1 % (9.0-15.0); WHITE BLOOD COUNT (AUTO) 20.6 K/uL (4.8-10.8)
[2022-05-10] MEDS: AMIODARONE HCL 200 MG TABLET PO SCH (08:44)
[2022-05-10] MEDS: VANCOMYCIN HCL ORAL SOLUTION 125 MG/5 ML, 150 ML PO SCH ×4 (08:45→21:00)
[2022-05-10] MEDS: POTASSIUM CHLORIDE 20 MEQ/PKT PACKET PO SCH (08:45)
[2022-05-10] MEDS: APIXABAN 2.5 MG TABLET PO SCH ×2 (08:45→21:00)
[2022-05-10] MEDS: MIDODRINE HCL 5 MG TABLET (PROAMATINE) PO SCH ×3 (08:46→21:00)
[2022-05-10 09:17] LABS: PLATELET COUNT (AUTO) 42 K/uL (130-430)
--- NOTE | 2022-05-10 09:27 | NUR ---
CRITICAL LAB: CONRAD from Laboratory called with critical lab value PLATELET 42. Medical record number and patient name verified. Read back of values done. DR. Marcano notified of value during his rounds. NO new order given at this time.
[2022-05-10 09:34] LABS: TRIGLYCERIDES 137 mg/dL (30-150)
--- NOTE | 2022-05-10 10:55 | NUR ---
CASE PICKER/DISCHARGE PLANNING ACSW Susan faxed patient's packet to the following SNFs: - [facility] P: F: - [facility] P: F: - [facility] P: [phone] F: - [facility] P: F:
[2022-05-10 12:00] VITALS: BP_SYST 115
--- NOTE | 2022-05-10 12:00 | NUR ---
DR. MOORE SPOKE TO THE FAMILY(DTR, REN AND ): DR. MOORE SPOKE TO THE FAMILY REGARDING PATIENT'S CONDITION. PER FAMILY (DAUGHTER/ REN) , THEY DECIDED TO STAY ON BIPAP. THEY WILL TALK TO THE OTHER FAMILY REGARDING COMFORT MEASURES (E.G. MORPHINE). ONCE THEY WILL BE DECIDED, THEY WILL CALL BACK OR TALK TO DR. MOORE..
--- NOTE | 2022-05-10 12:11 | NUR ---
INCONTINENT CARE DONE: INCONTINENT CARE DONE. SACRAL AREA INTACT. SHALLOW BREATHING. BIPAP IN PLACED.
--- NOTE | 2022-05-10 14:00 | NUR ---
CM: BECKIE sent out the referral as follows: -[facility] P: F: - [facility] P: F: : per [facility], patient is accepted. - [facility] P: [phone] F: - [facility] P: F:
[2022-05-10 14:26] LABS: BAND % (MANUAL) 17 % (0-6); BASOPHILS % (MANUAL) 0 % (0-2); EOSINOPHILS % (MANUAL) 0 % (0-7); LYMPHOCYTES % (MANUAL) 3 % (20-46); METAMYELOCYTES % 2 % (0-0); MONOCYTES % (MANUAL) 11 % (0-11)
[2022-05-10 16:00] VITALS: BP_SYST 100
--- NOTE | 2022-05-10 19:27 | NUR ---
CLOSING NOTES: PATIENT RESTING IN BED. SHALLOW BREATHING. BIPAP IN PLACED. IV INFUSING WELL. FALL AND SAFETY MEASURES PROVIDED. CALL LIGHT WITHIN REACH. NEEDS MET THROUGHOUT SHIFT.
[2022-05-10 19:42] VITALS: BP_SYST 97
[2022-05-10 20:00] VITALS: BP_SYST 97
[2022-05-10] MEDS: VYNDAMAX 61 MG PO SCH (21:00)
[2022-05-10] MEDS ORDERED: TPN CENTRAL IV SCH ×8 (21:00)
[2022-05-10] MEDS ORDERED: K PHOS IV SCH ×8 (21:00)
[2022-05-10] MEDS ORDERED: MVI IV SCH ×8 (21:00)
[2022-05-10] MEDS: DONEPEZIL HCL 5 MG TABLET (ARICEPT) PO SCH (21:00)
[2022-05-10] MEDS ORDERED: TRACE ELEMENTS IV SCH ×8 (21:00)
[2022-05-10] MEDS ORDERED: [UNRECOGNIZED DRUG - OTHER] IV SCH ×8 (21:00)
[2022-05-10] MEDS: FAT EMULSIONS 250 ML IV SCH (21:44)
[2022-05-10] MEDS: POTASSIUM CHLORIDE 20 MEQ in D5/0.45 NS 1,000 ML IV SCH (21:50)
[2022-05-11] VITALS (7 sets, daily range): BP systolic 61–107
[2022-05-11] MEDS: PIPERACILLIN/TAZOBACTAM 3.375 GM/ D5W 50 ML IV SCH ×4 (00:04→05:45)
--- NOTE | 2022-05-11 06:33 | NUR ---
Closing Note- Pt open eye. respiration sallow and labored. on BIPAP FIO2 45%, sat remains >91%. last bp85/52 mmhg, HR 58, Tele- controlled A-FIB. BS 169 mg/dl at 06:00 am. incontinent of urine and bm- had 3 times loose greenish stool. excoriation around groin and buttocks. cleaned with water and soap then applied skin protective cream. TPN @ 50 ml/hr, lipid 5 ml/hr and d51/2ns+ 20 meq kcl at 30 ml/hr. Modified code- BIPAP.
[2022-05-11] MEDS: LEVOTHYROXINE SODIUM 0.075 MG TABLET PO SCH (06:40)
[2022-05-11 07:20] LABS: ALANINE AMINOTRANSFERASE 48 U/L (12-78); ALBUMIN 1.8 g/dL (3.4-4.8); ANION GAP 8 (5-15); ASPARTATE AMINOTRANSFERASE 64 U/L (10-37); CALCIUM 8.2 mg/dL (8.4-11.0); CHLORIDE 109 mmol/L (98-107); CREATININE 2.49 mg/dL (0.55-1.30); GLUCOSE 122 mg/dL (70-99); PHOSPHORUS 4.3 mg/dL (2.7-4.5); POTASSIUM 4.8 mmol/L (3.5-5.1); SODIUM SERUM 143 mmol/L (136-145); TOTAL BILIRUBIN 1.3 mg/dL (0.0-1.0); UREA NITROGEN, BLOOD 99 mg/dL (8-21)
--- NOTE | 2022-05-11 07:30 | NUR ---
OPENING NOTES: PATIENT RESTING IN BED, LETHARGIC AND NONVERBAL. CURRENTLY ON BIPAP 45% FIO2 02 SAT 94%. NO ADDITIONAL DISTRESS NOTED. CALL LIGHT WITHIN REACH. WILL CONT TO MONITOR.
[2022-05-11] MEDS: METHYLPREDNISOLONE SOD SUCC 40 MG/ML VIAL IVP SCH (08:54)
[2022-05-11] MEDS: VANCOMYCIN HCL ORAL SOLUTION 125 MG/5 ML, 150 ML PO SCH (09:00)
[2022-05-11] MEDS: MIDODRINE HCL 5 MG TABLET (PROAMATINE) PO SCH (09:00)
[2022-05-11] MEDS: AMIODARONE HCL 200 MG TABLET PO SCH (09:00)
[2022-05-11] MEDS: APIXABAN 2.5 MG TABLET PO SCH (09:00)
[2022-05-11] MEDS: POTASSIUM CHLORIDE 20 MEQ/PKT PACKET PO SCH (09:00)
[2022-05-11] MEDS ORDERED: NS 250 ML IV ONE (09:15)
--- NOTE | 2022-05-11 09:30 | NUR ---
FAMILY AT BEDSIDE: PATIENT'S AND DAUGHTER AT THE BEDSIDE AND WANTED TO SPEAK WITH DR MOORE REGARDING COMFORT CARE. WILL PAGE DR MOORE.
--- NOTE | 2022-05-11 10:18 | NUR ---
ATTENDING MD DR MOORE WAS PAGED, RE: TO INFORM FAMILY IS HERE TO DISCUSS COMFORT MEASURE.
[2022-05-11] MEDS ORDERED: CEFEPIME 2 GM in D5W 100 ML IV SCH (11:00)
--- NOTE | 2022-05-11 12:00 | NUR ---
1130 AM: SPOKE WITH DR MICHAEL AND WILL BE HERE AT NOON TO SPEAK WITH FAMILY REGARDING COMFORT CARE. 1145 AM: DR MOORE AT THE BEDSIDE AND SPOKE WITH FAMILY REGARDING COMFORT CARE. PER PATIENT , SHE WANTS THE PATIENT TO COMFORTABLE. NO MORE BIPAP AND IVF EXCEPTS MORPHINE DRIP AND 100% NRB MASK. 1155 AM: NEW ORDER FROM DR MOORE TO DC ALL MEDICATIONS, IVF, AND BIPAP. CODE STATUS DNR/DNI. START MORPHINE DRIP 2MG/HR PRN TITRATE (MAX OF 5MG/HR) AND APPLY 100% NRB MASK. 1200PM: RT IS MADE AWARE.
--- NOTE | 2022-05-11 12:18 | NUR ---
OFF BIPAP AND PLACED ON NRB 15LPM FIO2 100% PER MD MOORE ORDER.
--- NOTE | 2022-05-11 12:33 | NUR ---
Nutrition F/U Admitting Diagnosis Bilat pneumonia Reviewed Pertinent Medical/Surgical Hx Medical Record Patient PharmD Medical History Comment: PMH: CHF, dementia, HTN, and COPD per physician notes Pt also found w/ hypoxemia, hypothyroidism, hypernatremia, moderate malnutrition, and CKD per physician notes (05/11/22) per MD note: The patient appears to be in septic shock in addition he has acute kidney injury as well with low perfusion because of advanced cardiomyopathy. Patient will get a bolus of 250 cc of saline. Overall prognosis is very poor he is not expected to survive. Family is aware. Comfort measures recommended. Subjective Information: TPN was DC'd 05/11, Morphine drip started 05/11, changed from BiPAP to NRB per RT note. Current Diet Order/Nutrition Support: NPO x4 days TPN DC'd 05/11. Education Provided Not Indicated Pertinent Medications: Morphine drip Pertinent Labs: WBC 20.6(H), platelets 42(L), glucose 122(H), POC glucose range (05/10-05/11): 138-170(H) Height (Feet) 6 feet Height (Inches) 2.00 inches Weight (Pounds) NEW weight (05/06) 163 pounds Weight (Calculated Kilograms) 73.154056 kilograms Patient Weight 73.936 kg Body Mass Index 20.93 kg/m2 Usual Weight 190 lbs %UBW 86 %IBW 86 [place]/Adjusted Body Weight 190#/86.4 kg Recent Weight Change Yes - Suspected 27# wt loss/14% wt change within 6 mo Weight Status Appropriate Gastrointestinal Symptoms Diarrhea Last BM 05/11 x2 Difficulty With: Chewing Swallowing Food Allergies No Usual Diet At Home Regular/thin/DEBBIE per nursing nutritional screening Skin Integrity Comment: Nicholas scale: 10 05/10/22 @ 2000 Current % PO N/A Estimated Energy Expenditure (kcals/day) 1079-4251 (30-35 kcal/kg CBW d/t acute illness) Estimated Protein Required (g/day) 74-89 (0.8-1.2 gm/kg CBW d/t acute illness) Estimated Fluid Required (l/day) Per physician d/t CKD Problem/Etiology/Signs/Symptoms Complicated GI function R/T suspected med-induced diarrhea AEB daughter report of loose BM since starting Abx. *Ongoing, pt +C. diff Inadequate TPN support R/T increased nutritional demands AEB estimated nutritional requirements for acute illness and current TPN support meets <75% of estimated nutritional needs Expected Outcomes/Goals - Support goals of care Dietitian Recommendations *NPO per MD order Follow Up High Risk: F/U in 2-3 days
[2022-05-11] MEDS ORDERED: MORPHINE SULFATE IN 0.9 % NACL 100 ML IV PRN (13:00)
--- NOTE | 2022-05-11 15:57 | NUR ---
MORPHINE DRIP INITIATE: MS 2MG/HR DRIP PRN TITRATE (5MG MAX) INITIATED VERIFIED WITH BARBARA STEWART.
--- NOTE | 2022-05-11 17:30 | NUR ---
MORPHINE INCREASED: MORPHINE INCREASED FROM 2MG/HR TO 2.5MG/HR DUE TO INCREASE AGONAL BREATHING. FAMILY AT THE BEDSIDE. 02 SAT 92% ON NRB MASK. HR 100-126. WILL REASSESS AND MONITOR.
--- NOTE | 2022-05-11 18:30 | NUR ---
HR DECREASED: NOTED HR BETWEEN 30'S-40'S. FAMILY MEMBERS (SON AND DAUGHTER) AT THE BEDSIDE. MADE THEM AWARE TO CALL THE PATIENT'S . LABORED/AGONAL BREATHING. RESPIRATORY RATE 1.
--- NOTE | 2022-05-11 18:55 | NUR ---
SECOND DAUGHTER AND PATIENT'S ARRIVED AT THE BEDSIDE AND MADE THEM AWARE OF PATIENT DECLINING. HR BETWEEN 30'S-50'S VIA MONITOR.
--- NOTE | 2022-05-11 19:08 | NUR ---
1907: PATIENT AT 1907 PRONOUNCED AND ASSESSED BY TWO RN'S (FILEMON GAVIN AND CLARY GUEVARA). FAMILY WAS AT THE BEDSIDE (CHILDREN AND ). MORPHINE IV DRIP AND NRB MASK REMOVED.
--- NOTE | 2022-05-11 19:30 | NUR ---
[id number]: 1915: FAMILY LEFT AT THE BEDSIDE. 1919: WASTED MORPHINE 55CC WITH CLARY GUEVARA RN. 1929: COMPLETE SBAR REPORT GIVEN TO CLARY GUEVARA RN.
--- NOTE | 2022-05-11 20:30 | NUR ---
[facility] / [employer] AND [employer]ORING MACHINE OPERATOR CALLED [facility] NOTIFIED, SPOKE WITH MICHAEL, NOT PURSUING. [employer] AND BORING MACHINE OPERATOR CALLED, SPOKE WITH KING, NO CHUCKING AND BORING MACHINE OPERATOR CASE.
[2022-05-11] MEDS ORDERED: K PHOS IV SCH ×7 (21:00)
[2022-05-11] MEDS ORDERED: metroNIDAZOLE 500 mg/NS 100 ML IV SCH (21:00)
[2022-05-11] MEDS ORDERED: TRACE ELEMENTS IV SCH ×7 (21:00)
[2022-05-11] MEDS ORDERED: [UNRECOGNIZED DRUG - OTHER] IV SCH ×7 (21:00)
[2022-05-11] MEDS ORDERED: INSULIN REGULAR IV SCH ×7 (21:00)
[2022-05-11] MEDS ORDERED: TPN CENTRAL IV SCH ×7 (21:00)
[2022-05-11] MEDS ORDERED: MVI IV SCH ×7 (21:00)
--- NOTE | 2022-05-12 08:30 | NUR ---
Disposition code 20
== END 2022-05-11 19:08 | DRG 871 ==
LOC: SED 15:37 → STU 18:35
PROVIDERS: ADMIT Family Medicine; ATTEND Family Medicine
PROC: 5A09357 Assistance with Respiratory Ventilation, Less than 24 Consecutive Hours, Continuous Positive Airway Pressure (ICD-10-PCS; principal; 2022-05-06)
PROC: 5A09357 Assistance with Respiratory Ventilation, Less than 24 Consecutive Hours, Continuous Positive Airway Pressure (ICD-10-PCS; 2022-05-07)
PROC: 5A09457 Assistance with Respiratory Ventilation, 24-96 Consecutive Hours, Continuous Positive Airway Pressure (ICD-10-PCS; 2022-05-09)
DX: A41.9 Sepsis, unspecified organism (principal); J69.0 Pneumonitis due to inhalation of food and vomit; J96.01 Acute respiratory failure with hypoxia; E44.0 Moderate protein-calorie malnutrition; E87.0 Hyperosmolality and hypernatremia; E85.4 Organ-limited amyloidosis; I13.0 Hypertensive heart and chronic kidney disease with heart failure and stage 1 through stage 4 chronic kidney disease, or unspecified chronic kidney disease; I43 Cardiomyopathy in diseases classified elsewhere; I48.20 Chronic atrial fibrillation, unspecified; I42.9 Cardiomyopathy, unspecified; I50.42 Chronic combined systolic (congestive) and diastolic (congestive) heart failure; A04.72 Enterocolitis due to Clostridium difficile, not specified as recurrent; Z66 Do not resuscitate; Z20.822 Contact with and (suspected) exposure to COVID-19; N18.2 Chronic kidney disease, stage 2 (mild); J84.112 Idiopathic pulmonary fibrosis; E03.9 Hypothyroidism, unspecified; J84.10 Pulmonary fibrosis, unspecified; D69.6 Thrombocytopenia, unspecified; F03.90 Unspecified dementia, unspecified severity, without behavioral disturbance, psychotic disturbance, mood disturbance, and anxiety; J44.9 Chronic obstructive pulmonary disease, unspecified; Z90.49 Acquired absence of other specified parts of digestive tract; Z87.891 Personal history of nicotine dependence; Z87.01 Personal history of pneumonia (recurrent); Z86.711 Personal history of pulmonary embolism; Z79.01 Long term (current) use of anticoagulants; Z68.20 Body mass index [BMI] 20.0-20.9, adult; Z79.899 Other long term (current) drug therapy
CPT/HCPCS: 36415; 36600; 71045; 80048; 80053; 80162; 82803-TC; 82962; 83605; 83735; 83880; 84100; 84443; 84478; 84484; 85007; 85025; 85027; 85610-TC; 85730-TC; 87040; 87081; 87230-TC; 92610-GN; 93005; 93306; 94640; 94660; 94760; 96374; 99285; G0378; J0692; J1030; J1956; J2020; J2270; J2543; J2930; J3370; J3475; J3480; J7050; J7060; J7612; J7613